=== PATIENT | female | born 2005 | race Caucasian/White ===

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

== ENCOUNTER 2024-04-04 05:13 | Emergency (ER) | payer OTHER ==
[~2024-04-04] VITALS: Ht 160 cm; Wt 52.4 kg
[2024-04-04 05:41] LABS: BASOPHILS 0.1 % (0-2); EOSINOPHILS 0.6 % (0-6); HEMOGLOBIN 13.6 g/dL (12.0-18.0); LYMPHOCYTES 9.3 % (24-44); MCH 27.9 (27-36); MCHC 33.1 g/dl (30-36); MCV 84.4 fl (81-99); MONOCYTES 7.7 % (0-12); NEUTROPHILS 82.3 % (39-80); PLATELET COUNT 215 K/uL (140-440); RBC 4.85 M/ul (4.3-5.7); RDW 15.4 (10.5-15.0)
[2024-04-04 05:42] LABS: BILIRUBIN, URINE NEGATIVE (negative); BLOOD/HGB, URINE TRACE-I (Negative); KETONE, URINE SMALL (Negative); LEUK ESTERASE, URINE NEGATIVE (negative); NITRITE, URINE NEGATIVE (negative)
[2024-04-04] MEDS ORDERED: ondansetron HCL 4 MG/2 ML VIAL IV ONE (05:45)
[2024-04-04] MEDS ORDERED: SODIUM CHLORIDE 0.9% 1,000 ML IV ONE (05:45)
[2024-04-04] MEDS ORDERED: MORPHINE SULFATE 4 MG/ML VIAL IV ONE (05:45)
[2024-04-04 05:57] LABS: ALBUMIN 4.1 g/dL (3.4-5.0); ALBUMIN/GLOBULIN RATIO 1.03 (1.1-2.4); ANION GAP 16.7 (7-21); BILIRUBIN, TOTAL 0.5 ng/dL (0.2-1.0); BUN/CREATININE RATIO 20.68 (6.0-28.6); CALCIUM 9.2 mg/dL (8.5-10.1); CREATININE, SERUM 0.58 mg/dL (0.55-1.02); POTASSIUM 3.7 mmol/L (3.5-5.1); PROTEIN, TOTAL 8.1 g/dL (6.4-8.2)
[2024-04-04 06:10] LABS: BACTERIA, URINE NONE SEEN /hpf (negative); CASTS, URINE NONE SEEN \\lpf; COLLECTION TYPE, URINE CLEAN CATCH; CRYSTALS, URINE NONE SEEN (0-1+); EPITHELIAL CELLS, URINE SQUAMOUS 1+ /lpf (0-1+); REFLEX CULTURE, URINE No (No); WHITE BLOOD CELLS, URINE 0-1 /HPF (0-5)
[2024-04-04] MEDS ORDERED: FLOMAX0.4 MG PO (07:09)
[2024-04-04] MEDS ORDERED: ONDANSETRON ODT8 MG PO (07:09)
[2024-04-04] MEDS ORDERED: KETOROLAC TROME10 MG PO (07:09)
[2024-04-04] MEDS ORDERED: PERCOCET 5-3251 EACH PO (07:09)
[2024-04-04] MEDS ORDERED: CEFDINIR300 MG PO (07:09)
[2024-04-04] MEDS ORDERED: PROCHLORPERAZINE EDISYLATE 10 MG/2 ML VIAL IV ONE (07:15)
[2024-04-04] MEDS ORDERED: CEFDINIR 300 MG HOME.PACK PO ONE (07:30)
[2024-04-04] MEDS ORDERED: OXYCODONE/ACETAMINOPHEN 1 TAB HOME.PACK PO ONE (07:30)
[2024-04-04] MEDS ORDERED: ONDANSETRON 4 MG HOME.PACK SL ONE (07:30)
[2024-04-04] MEDS ORDERED: TAMSULOSIN HCL 0.4 MG CAP PO ONE (07:30)
[2024-04-04 07:38] VITALS: BP 100/58
== END 2024-04-04 07:40 | disposition home or self-care (01) ==
LOC: ED 05:13
PROVIDERS: Family Medicine
DX: N20.0 Calculus of kidney (principal)
CPT/HCPCS: 36415; 74177; 80053; 81001; 83690; 84703; 85025; 96375; 99284-25; A9270; J0780; J2270; J2405; J7030; Q9967

== ENCOUNTER 2024-04-06 03:51 | Emergency (ER) | payer OTHER ==
[~2024-04-06] VITALS: Ht 160 cm; Wt 50.0 kg
[~2024-04-06 03:51] MED LIST changes: +CEFDINIR300 MG PO; +FLOMAX0.4 MG PO; +KETOROLAC TROME10 MG PO; +PERCOCET 5-3251 EACH PO
--- OUTSIDE RECORDS SUMMARY | 2024-04-06 03:57 | XMS ---
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 - 2 Visits in 30 Days CARE PROVIDERS -, [facility] Dentist: Overhead Foreman [facility] [place] PHONE: [phone] -[place]- Dentist: Overhead Foreman [facility] PHONE: [phone] CELIA CHILD Current PHONE: [phone] ADELINA MONTALVO [facility] Current PHONE: Unknown Yadiel has no Care Guidelines for this patient. Sriram VISIT COUNT (12 MO.) 3 VIKTORIYA [place] TOTAL 3 NOTE: Visits indicate total known visits. ED/UCC VISIT TRACKING (12 MO.) 04/06/2024 03:51 VIKTORIYA [facility] [place] TYPE: Emergency COMPLAINT: - VOMITING 04/04/2024 05:14 VIKTORIYA [facility] [place] TYPE: Emergency COMPLAINT: - VOMITING DIAGNOSES: - Calculus of kidney - Nausea with vomiting, unspecified 10/03/2023 23:31 VIKTORIYA [facility] TYPE: Emergency COMPLAINT: - VOMITING INPATIENT VISIT TRACKING (12 MO.) 12/26/2023 22:04 VIKTORIYA Longo OR TYPE: [facility] COMPLAINT: - LABOR DIAGNOSES: - 39 weeks gestation of - 39 weeks gestation of - Encounter for full-term uncomplicated delivery - Single live - Single live - Third degree perineal laceration during delivery, unspecified - Third degree perineal laceration during delivery, unspecified [email or web address]
[2024-04-06] MEDS ORDERED: PROCHLORPERAZINE EDISYLATE 10 MG/2 ML VIAL IV ONE (04:15)
[2024-04-06] MEDS ORDERED: KETOROLAC TROMETHAMINE 30 MG/ML VIAL IV ONE (04:15)
[2024-04-06 04:36] LABS: BASOPHILS 0.3 % (0-2); EOSINOPHILS 0.9 % (0-6); HEMATOCRIT 35.7 % (35.0-50.0); HEMOGLOBIN 12.2 g/dL (12.0-18.0); LYMPHOCYTES 16.8 % (24-44); MCH 28.3 (27-36); MCHC 34.1 g/dl (30-36); MCV 83.1 fl (81-99); PLATELET COUNT 209 K/uL (140-440); RDW 15.4 (10.5-15.0)
[2024-04-06 04:54] LABS: ALBUMIN 3.5 g/dL (3.4-5.0); ALBUMIN/GLOBULIN RATIO 0.97 (1.1-2.4); ANION GAP 16.2 (7-21); BILIRUBIN, TOTAL 0.5 ng/dL (0.2-1.0); BUN/CREATININE RATIO 14.92 (6.0-28.6); CALCIUM 8.4 mg/dL (8.5-10.1); CREATININE, SERUM 0.67 mg/dL (0.55-1.02); MAGNESIUM 1.7 mg/dL (1.8-2.4); POTASSIUM 3.2 mmol/L (3.5-5.1); PROTEIN, TOTAL 7.1 g/dL (6.4-8.2)
[2024-04-06] MEDS ORDERED: PROMETHAZINE HC25 M1 PO (05:05)
[2024-04-06] MEDS ORDERED: PROMETHAZINE HCL 25 MG HOME.PACK PO ONE (05:15)
[2024-04-06] MEDS ORDERED: MAGNESIUM OXIDE 400 MG TABLET PO ONE (05:15)
[2024-04-06] MEDS ORDERED: POTASSIUM CHLORIDE 10 MEQ TABCR PO ONE (05:15)
[2024-04-06 05:32] LABS: INFLUENZA B NAA NEGATIVE (NEGATIVE); RESPIRATORY SYNCYTIAL VIR NAA NEGATIVE (NEGATIVE)
[2024-04-06 05:48] VITALS: BP 116/91
== END 2024-04-06 05:48 | disposition home or self-care (01) ==
LOC: ED 03:51
PROVIDERS: Family Medicine
DX: N20.0 Calculus of kidney (principal); R11.2 Nausea with vomiting, unspecified; Z79.899 Other long term (current) drug therapy
CPT/HCPCS: 36415; 80053; 83735; 85025; 87502; 96374; 96375; 99284-25; A9270; J0780; J1885; U0002

== ENCOUNTER 2024-07-08 15:59 | Emergency (ER) | payer OTHER ==
[~2024-07-08] VITALS: Ht 160 cm; Wt 49.0 kg
[~2024-07-08 15:59] MED LIST changes: +PROMETHAZINE HC25 M1 PO
[2024-07-08] MEDS ORDERED: ondansetron HCL 4 MG/2 ML VIAL IV ONE (16:45)
[2024-07-08 17:00] LABS: BILIRUBIN, URINE NEGATIVE (negative); BLOOD/HGB, URINE MODERATE (Negative); KETONE, URINE NEGATIVE (Negative); LEUK ESTERASE, URINE TRACE (negative); NITRITE, URINE NEGATIVE (negative)
[2024-07-08 17:02] LABS: BASOPHILS 0.6 % (0-2); EOSINOPHILS 1.4 % (0-6); HEMATOCRIT 36.7 % (35.0-50.0); HEMOGLOBIN 12.4 g/dL (12.0-18.0); LYMPHOCYTES 20.9 % (24-44); MCH 29.5 (27-36); MCHC 33.8 g/dl (30-36); MCV 87.3 fl (81-99); MONOCYTES 4.7 % (0-12); NEUTROPHILS 72.4 % (39-80); PLATELET COUNT 282 K/uL (140-440); RBC 4.21 M/ul (4.3-5.7); RDW 13.3 (10.5-15.0)
[2024-07-08 17:06] LABS: CRYSTALS, URINE NONE SEEN (0-1+); EPITHELIAL CELLS, URINE SQUAMOUS 3+ /lpf (0-1+); WHITE BLOOD CELLS, URINE 21-40 /HPF (0-5)
[2024-07-08 17:07] LABS: BACTERIA, URINE 1+ /hpf (negative); CASTS, URINE NONE SEEN \\lpf; COLLECTION TYPE, URINE CLEAN CATCH; REFLEX CULTURE, URINE No (No)
[2024-07-08 17:16] LABS: ALBUMIN 4.1 g/dL (3.4-5.0); ALBUMIN/GLOBULIN RATIO 1.05 (1.1-2.4); ANION GAP 9.6 (7-21); BILIRUBIN, TOTAL 0.4 mg/dL (0.2-1.0); BUN/CREATININE RATIO 12.32 (6.0-28.6); CREATININE, SERUM 0.73 mg/dL (0.55-1.02); POTASSIUM 3.6 mmol/L (3.5-5.1)
[2024-07-08] MEDS ORDERED: CEPHALEXIN500 M1 PO (19:30)
[2024-07-08 19:52] VITALS: BP 101/68
== END 2024-07-08 19:56 | disposition home or self-care (01) ==
LOC: ED 15:59
PROVIDERS: Emergency Medicine
DX: R10.30 Lower abdominal pain, unspecified (principal)
CPT/HCPCS: 36415; 74176; 80053; 81001; 83690; 84703; 85025; 99284-25

== ENCOUNTER 2025-04-25 09:50 | Inpatient (IN) | payer OTHER ==
[~2025-04-25] VITALS: Ht 160 cm; Wt 63.0 kg
[~2025-04-25 09:50] MED LIST changes: +CEPHALEXIN500 M1 PO
[2025-04-25] MEDS ORDERED: PENICILLIN G POTASSIUM 5 MUNITS VIAL ONE (10:04)
[2025-04-25] MEDS ORDERED: SODIUM CHLORIDE 0.9% 100 ML IV ONE (10:05)
[2025-04-25 10:09] LABS: MCH 29.4 PG (25.6-32.2); MCHC 33.9 g/dL (32.2-35.5); MCV 86.6 fL (79.4-94.8); RBC 4.49 M/uL (3.93-5.22)
[2025-04-25] MEDS ORDERED: PENICILLIN G POTASSIUM 5 MUNITS in SODIUM CHLORIDE 0.9% 100 ML IV ONE (10:15)
[2025-04-25] MEDS ORDERED: LACTATED RINGER'S 1,000 ML IV PRN (10:15)
[2025-04-25] MEDS ORDERED: LIDOCAINE HCL 1% 30 ML SDV INJ PRN (10:15)
[2025-04-25] MEDS ORDERED: OXYTOCIN/0.9 % SODIUM CHLORIDE 30 UNITS/500 ML BAG IV SCH (10:15)
[2025-04-25] MEDS ORDERED: MAGNESIUM HYDROXIDE/AL HYDROX 30 ML CUP PO PRN ×2 (10:15→14:45)
[2025-04-25] MEDS ORDERED: TERBUTALINE SULFATE 1 MG/ML AMP SUB-Q PRN (10:15)
[2025-04-25] MEDS ORDERED: CALCIUM CARBONATE 500 MG CHEW PO PRN ×2 (10:15→14:45)
[2025-04-25] MEDS ORDERED: fentaNYL citrate 100 MCG/2 ML VIAL ONE (10:19)
[2025-04-25] MEDS ORDERED: ROPIVACAINE 0.2% 200 ML BAG ONE (10:19)
[2025-04-25] MEDS ORDERED: LACTATED RINGER'S 500 ML IV PRN (11:00)
[2025-04-25] MEDS ORDERED: ePHEDrine sulfate 5 MG/ML SYRINGE IV PRN (11:00)
[2025-04-25] MEDS ORDERED: ROPIVACAINE 0.2% 200 ML BAG EPIDURAL SCH (11:00)
[2025-04-25] MEDS ORDERED: LACTATED RINGER'S 2,000 ML IV ONE (11:00)
[2025-04-25] MEDS ORDERED: LACTATED RINGER'S 1,000 ML IV SCH (11:15)
[2025-04-25 11:46] LABS: ABO O; ANTIBODY SCREEN POSITIVE; RH NEGATIVE
[2025-04-25 12:01] LABS: ANTIBODY IDENTIFICATION anti-D
[2025-04-25 13:12] VITALS: BP 101/57
[2025-04-25] MEDS ORDERED: PENICILLIN G POTASSIUM 2.5 MUNITS in SODIUM CHLORIDE 0.9% 100 ML IV SCH (14:00)
[2025-04-25] MEDS ORDERED: SENNOSIDES/DOCUSATE 1 EA TAB PO SCH (14:42)
[2025-04-25] MEDS ORDERED: ACETAMINOPHEN 500 MG TAB PO SCH (14:45)
[2025-04-25] MEDS ORDERED: WITCH HAZEL/GLYCERIN 1 EA PAD TOP PRN (14:45)
[2025-04-25] MEDS ORDERED: OXYTOCIN/0.9 % SODIUM CHLORIDE 500 ML IV SCH (14:45)
[2025-04-25] MEDS ORDERED: IBUPROFEN 600 MG TAB PO SCH ×2 (14:45→23:00)
[2025-04-25] MEDS ORDERED: BENZOCAINE 60 ML AEROSOL TOP PRN (14:45)
[2025-04-25] MEDS ORDERED: LIDOCAINE 2% VISCOUS 6 ML SYR TOP ONE ×2 (14:45)
[2025-04-25] MEDS ORDERED: HYDROCODONE/ACETA 5/325 TAB PO PRN (14:45)
[2025-04-25] MEDS ORDERED: HYDROCORTISONE ACETATE 25 MG SUPP PR PRN (14:45)
[2025-04-25] MEDS ORDERED: MAGNESIUM HYDROXIDE 30 ML UDC PO PRN (14:45)
[2025-04-25 19:37] LABS: AMPHETAMINES, URINE NEGATIVE (NEGATIVE); BARBITURATES, URINE NEGATIVE (NEGATIVE); BENZODIAZEPINE, URINE NEGATIVE (NEGATIVE); CANNABINOID, URINE NEGATIVE (NEGATIVE); COCAINE, URINE NEGATIVE (NEGATIVE); ECSTASY, URINE NEGATIVE (NEGATIVE); FENTANYL, URINE NEGATIVE (NEGATIVE); METHADONE, URINE NEGATIVE (NEGATIVE); OPIATES, URINE NEGATIVE (NEGATIVE); OXYCODONE, URINE NEGATIVE (NEGATIVE); PHENCYCLIDINE, URINE NEGATIVE (NEGATIVE)
[2025-04-26] MEDS ORDERED: ACETAMINOPHEN 500 MG TAB PO SCH
== END 2025-04-26 17:30 | disposition home or self-care (01) | DRG 807 ==
LOC: FBCO 09:50 → FBC 10:00
PROVIDERS: ADMIT Obstetrics & Gynecology; ATTEND Obstetrics & Gynecology
PROC: 3E0R3BZ Introduction of Anesthetic Agent into Spinal Canal, Percutaneous Approach (ICD-10-PCS; principal; 2025-04-25)
PROC: 10907ZC Drainage of Amniotic Fluid, Therapeutic from Products of Conception, Via Natural or Artificial Opening (ICD-10-PCS; principal; 2025-04-25)
PROC: 10E0XZZ Delivery of Products of Conception, External Approach (ICD-10-PCS; principal; 2025-04-25)
PROC: 3E03329 Introduction of Other Anti-infective into Peripheral Vein, Percutaneous Approach (ICD-10-PCS; principal; 2025-04-25)
PROC: 0KQM0ZZ Repair Perineum Muscle, Open Approach (ICD-10-PCS; principal; 2025-04-25)
PROC: 00HU33Z Insertion of Infusion Device into Spinal Canal, Percutaneous Approach (ICD-10-PCS; principal; 2025-04-25)
DX: O99.824 Streptococcus B carrier state complicating childbirth (principal); Z37.0 Single live birth; O70.1 Second degree perineal laceration during delivery; Z3A.40 40 weeks gestation of pregnancy; Z98.890 Other specified postprocedural states; Z87.440 Personal history of urinary (tract) infections; Z79.899 Other long term (current) drug therapy
CPT/HCPCS: 01960; 36415; 80307; 85027; 86850; 86870; 86900; 86901; A9270; J2540; J2795; J3010; J7121